=== PATIENT | male | born 2000 | race Caucasian/White ===

== ENCOUNTER 2019-04-07 16:01 | Emergency (ER) | payer OTHER, SELFPAY ==
[2019-04-07 16:03] VITALS: BP 152/104; PULSE 86; RESP 16; TEMP 36.1; O2SAT 96; BMI 19.0
--- NOTE | 2019-04-07 16:21 | CT_ITS ---
STUDY: CT ABDOMEN AND PELVIS WITH CONTRAST REASON FOR EXAM: Male, 18 years old. 8 FT FALL-LANDED ON 2 X 4, C/O RT SIDED PAIN, RT RIB PAIN RADIATION DOSAGE (If Supplied By Facility): CTDIvol = ( 9.52 ) mGy, DLP = ( 617.22 ) mGycm TECHNIQUE: Transaxial images were obtained from the dome of the diaphragm to the symphysis pubis without oral contrast. IV 100mL Isovue-300 was administered. Sagittal and coronal images were reconstructed. Individualized dose optimization techniques were used for this CT. COMPARISON: None. FINDINGS: The visualized lung bases are unremarkable. The visualized portions of the heart are within normal limits. Normal liver. The gallbladder is contracted. Normal spleen. Normal pancreas. Normal bilateral adrenal glands. Normal right kidney. Normal left kidney. Normal visualized stomach. Normal small intestine. Normal colon. The appendix is visualized and appears normal. Normal abdominal aorta. Normal inferior vena cava. Normal retroperitoneum. Normal urinary bladder. Normal abdominal wall. Normal osseous structures. CT/Abdomen/Pelvis WITH Contrast IMPRESSION: Normal enhanced CT of the abdomen and pelvis. Electronically Signed: Donald Ramsey MD at 17:05 EST Tel , Service support ,
--- NOTE | 2019-04-07 16:21 | CT_ITS ---
STUDY: CT CHEST WITH CONTRAST REASON FOR EXAM: Male, 18 years old. 8 FT FALL-LANDED ON 2 X 4, C/O RT ABD PAIN, RT RIB PAIN, BRUISING TO AREA RADIATION DOSAGE (If Supplied By Facility): CTDIvol = ( 9.52 ) mGy, DLP = ( 617.22 ) mGycm TECHNIQUE: Transaxial imaging was performed following intravenous administration of IV 100mL Isovue-300. Individualized dose optimization techniques were used for this CT. COMPARISON: None. FINDINGS: The lungs are normal. There is no demonstrated pleural abnormality. Normal heart and pericardium. Normal mediastinum. Normal hilar regions. Normal enhanced pulmonary arteries. Normal aorta arch and descending thoracic aorta. Normal osseous structures. There is no demonstrated abnormality of the visualized upper abdomen. CT/Chest WITH Contrast IMPRESSION: Normal enhanced CT Chest examination. Electronically Signed: Donald Ramsey MD at 17:10 EST Tel , Service support ,
[2019-04-07 16:52] LABS: Absolute Lymphocyte Count 2.69 X10^3/uL (0.83-4.51); Absolute Neutrophil Count 7.9 X10^3/uL (2.0-7.7); Basophil% 0.8 % (0-1); Eosinophil# 0.19 X10^3/uL; Eosinophils% 1.6 % (0-5); Hematocrit 46.5 % (40-54); Lymphocyte # 2.69 X10^3/ul (4.0); Lymphocyte % 22.5 % (19-41); Mean Corp Hgb Conc 34.4 g/dL (32-36); Mean Corpuscular Hgb 30.1 pg (27.0-32.0); Mean Corpuscular Volume 87.4 fL (80-94); Mean Platelet Vol. 10.5 fl (6.2-12.0); Monocyte# 1.02 X10^3/uL; Monocyte% 8.5 % (0-10); NRBC Flagged by Analyzer 0 % (0-5); Neutrophil # 7.93 X10^3/uL (2.7-7.7); Neutrophil % 66.3 % (47-70); Platelet Count 252 K/mm3 (150-450); RBC Distribution Width SD 38.7 fl (35.1-43.9); Red Blood Count 5.32 M/mm3 (4.6-6.2)
--- NOTE | 2019-04-07 17:06 | ED.VIS.FALL ---
History of Present Illness Chief Complaint: Fall Narrative: Patient presenting for evaluation secondary to a fall. Patient was working on framing a house, was about 8 feet in the air. He suffered a mechanical fall where he fell and struck his right ribs against a 2 x 4 there was bracing a wall, and then fell directly onto his back. He denies hitting his head or loss of consciousness. He denies any headache or neck pain. He denies any visual changes numbness weakness or any anticoagulant use. Patient states that he has pain over his right ribs and some difficulty with deep inspiration. Pain is moderate, worse with breathing or with palpation. Patient denies any other injuries at this time. Review of systems otherwise negative. Past Medical History - Allergies and Home Meds Allergies/Adverse Reactions: Allergies No Known Allergies Allergy (Verified 04/07/19 16:02) Primary Care Physician: NOT,DEFINED [NON-STAFF] - Past Medical History: None Smoking Status: Never smoker Review of Systems Respiratory: Reports: Dyspnea, - - Right-sided rib pain Physical Exam Vital Signs/Narrative: Vital Signs Temp Pulse Resp BP Pulse Ox 04/07/19 16:03 97 F L 86 16 152/104 H 96 Inital Vital Signs reviewed: Yes General: Well nourished, Well developed, - - Airway is patent, breath sounds equal bilateral, peripheral pulses 2+ and symmetric, GCS 15 out of 15 Head: Normocephalic, Atraumatic. Negative for: Tenderness Eyes: Perrl, EOMI ENT: TM's clear, No hemotympanum or drainage, No trauma Neck: Nontender, Full ROM, - - Cervical spine was cleared via the NEXUS criteria Cardiovascular: Regular rate, Regular rhythm, No murmurs Respiratory: No distress, CTA bilaterally, - - Right lower chest tenderness palpation with overlying abrasion around the mid to posterior axillary line at about the T8-T10 ribs. No underlying crepitus or flail chest. Abdomen: Soft, Nontender, Nondistended, Normal bowel sounds Back: Nontender Extremeties: Atraumatic Neurological: Alert, Oriented x3, Cranial nerves II-XII grossly intact, Normal Strength, Normal Sensation Psychological: Normal affect Diagnostic/Tx/Re-eval - Medical Decision Making Patient presented secondary to a fall. Primary and secondary surveys showed only rib injuries. Patient's C-spine was cleared via Nexus criteria. Laboratory work-up shows mild demargination with leukocytosis of 13. CT chest abdomen and pelvis with IV contrast is negative per radiology. Patient was discharged with instructions of expectant management of a rib contusion. Disposition: Home ED Disposition - Plan for ED Patient: Disposition: Home or Assisted Living Diagnosis: Contusion of rib on right side Instructions: Rib Contusion Additional Instructions: Followup with your PCP as needed
[2019-04-07 17:10] LABS: Anion Gap 4 (5-15); BUN 13 mg/dL (7-18); BUN/Creat Ratio 12.5 RATIO (10-20); Calcium,Total 9.3 mg/dL (8.5-10.1); Chloride 106 mmol/L (98-107); Creatinine, Serum 1.04 mg/dL (0.70-1.30); EST Glomerular Filtration Rate 96 mL/min (>60); Est Glom Filt Rate - Afr Amer 116 mL/min (>60); Estimated Creatinine Clearance 101.77 ml/min; Glucose 85 mg/dL (74-106); Potassium 3.8 mmol/L (3.5-5.1); Sodium Level 140 mmol/L (136-145)
[2019-04-07 17:19] VITALS: O2SAT 98
[2019-04-07 17:21] VITALS: BP 113/77; PULSE 69; RESP 16; O2SAT 98
[2019-04-07 17:45] VITALS: BP 138/62; PULSE 74; RESP 16; O2SAT 99
== END 2019-04-07 17:45 | disposition home or self-care (01) ==
PROVIDERS: Emergency Provider Emergency Medicine; PCP Family Medicine
DX: S20.211A Contusion of right front wall of thorax, initial encounter (principal); W17.89XA Other fall from one level to another, initial encounter; Y93.H3 Activity, building and construction; Y92.009 Unspecified place in unspecified non-institutional (private) residence as the place of occurrence of the external cause; Y99.8 Other external cause status
CPT/HCPCS: 71260; 74177; 80048; 85025; 99283; Q9967; A4216